=== PATIENT | male | born 1935 | race Caucasian/White ===

== ENCOUNTER 2024-04-13 20:58 | Inpatient (IN) | payer OTHER, SELFPAY ==
[2024-04-13 16:25] VITALS: BP 211/125
[2024-04-13 16:36] LABS: % Basophils 0.5 % (0-2); % Eosinophils 0.2 % (0-6); % Immature Granulocytes 0.5 % (0-0.5); % Lymphocytes 7.6 % (20.5-51.1); % Monocytes 6.9 % (1.7-9.3); % Neutrophils 84.3 % (42.2-75.2); Absolute Basophils 0.1 10^3/uL (0-0.2); Absolute Immature Granulocytes 0.1 10^3/uL (0-0.05); Absolute Lymphocytes 0.8 10^3/uL (1.2-3.4); Absolute Monocytes 0.7 10^3/uL (0.1-0.6); Absolute Neutrophils 8.9 10^3/uL (1.4-6.5); Hematocrit 34.1 % (39.0-52.0); Hemoglobin 12.4 g/dL (13.0-18.0); Mean Corp Hgb Conc. 36.4 g/dL (33.0-37.0); Mean Corpuscular Hgb 34.8 pg (27.0-31.0); Mean Corpuscular Volume 95.8 fL (80.0-94.0); Mean Platelet Volume 10.9 fL (7.4-10.4); Nucleated Red Blood Cells % 0 % (-); Platelet Count 310 10^3/uL (130-400); Red Blood Cell Count 3.56 10^6/uL (4.70-6.10); Red Cell Dist. Width 12.5 % (11.5-14.5); White Blood Cell Count 10.6 10^3/uL (4.8-10.8)
[2024-04-13 16:53] LABS: ALT (SGPT) 21 U/L (0-50); AST (SGOT) 35 U/L (17-59); Albumin 4.7 g/dl (3.5-5.0); Alkaline Phosphatase 66 U/L (38-126); Blood Urea Nitrogen 24 mg/dl (9-20); Calcium 9.9 mg/dl (8.4-10.2); Carbon Dioxide 25 mmol/L (22-30); Chloride 97 mmol/L (98-107); Glucose 142 mg/dl (70-99); Lipase 45 U/L (23-300); Sodium 133 mmol/L (135-145); Total Bilirubin 0.5 mg/dl (0.2-1.3); Total Protein 7.5 g/dl (6.3-8.2); eGFR > 60.00
[2024-04-13 17:17] VITALS: BMI 22.5
[2024-04-13 17:17] LABS: Troponin I < 0.012 ng/ml
--- NOTE | 2024-04-13 17:20 | ED.GENMED ---
History of Present Illness
General
Chief Complaint: Abdominal Pain
Source: patient and records (Note from PCP office)
Exam Limitations: none
Time Seen by Provider: 04/13/24 16:58
Nursing documentation reviewed up to this point in time: agreed with
History of Present Illness
History of Present Illness:
89-year-old male with a past medical history of hyperlipidemia, chronic neck pain, BPH, history of gastric ulcer and perforation requiring ex lap (2019) who presents to the emergency room referred by PCP for evaluation of abdominal pain. Patient
reports onset of symptoms roughly 10 days ago. He says that 2 weeks ago he was initiated on meloxicam for his chronic neck pain (his medication list indicates that he also takes ibuprofen and is on chronic oxycodone for his neck pain). He says that
shortly after starting this medication he noticed he was having abdominal discomfort. He says that this has been persistent since that time and generally worsening. He reports pain periumbilical region and radiates towards the epigastrium. No
clear relieving factors noted. He reports associated lack of appetite. He did have 1 episode of vomiting shortly after onset of symptoms has not had any vomiting since. He says he has had some mild constipation�he says has had a bowel movement
every 2 to 3 days which is less than usual. He has not noticed any blood in his stool although note from PCP reports that rectal exam today was Hemoccult positive. He denies any chest pain although apparently reported this at PCP office according
to their note�when asked about it he says that the pain is in his epigastrium. Denies shortness of breath, dizziness, lightheadedness. Denies back pain. He denies any other complaints. Prior surgical history includes ex lap for perforated
duodenal ulcer.
Past History
Past History
ED Past Medical History: HTN and Hypercholesterolemia
ED Past Surgical History: None
Social History
Tobacco: Non-smoker
Alcohol: None
Review of Systems
Review of Systems
All Other Systems: ROS reviewed and negative except as documented in HPI and ROS
Constitutional: Denies fever or chills
Respiratory: Denies cough or trouble breathing
Cardiac: Denies chest pain or palpitations
ABD/GI: Reports abdominal pain, nausea, vomiting and constipated; Denies diarrhea
: Denies dysuria, frequency or flank pain
Musculoskeletal: Denies neck pain or back pain
Neurological: Denies dizzy or headache
Phy Exam
Physical Exam
Physical Exam:
General: Awake, alert, oriented x3; no acute distress
Head: Normocephalic, atraumatic
Eyes: Conjunctiva normal, sclera anicteric
Throat: Airway intact, handling secretions
Neck: Trachea midline, supple without meningismus
Lungs: Clear to auscultation bilaterally, no wheezing, rales, rhonchi
Heart: Regular rate and rhythm, no murmurs, gallops, or rubs
Abd: Soft, non distended, tender to palpation periumbilical region and epigastrium, no palpable masses, no peritoneal signs
Neuro: No gross deficits
Skin: no rash
Extremities: No edema in extremities, equal pulses in all extremities
Scores
Heart Failure Risk
Heart Failure Risk Score: Not Applicable
Heart Score for Chest Pain Patients
STEMI patient?: Not applicable
Withdrawal Assessment of Alcohol
Withdrawal Assessment Completed?: Not applicable
Course
Orders/Labs/Results
Orders:
Orders
04/13/24 16:30
Complete Blood Count/With Diff Urgent
Comprehensive Metabolic Panel Urgent
Lipase Urgent
Troponin I Urgent
04/13/24 16:59
Electrocardiogram (*1) Urgent
Reason for Study: Abdominal Pain
EKG- Treatment ONCE
04/13/24 17:18
CT Abd/pelvis W Iv Cont Urgent
Comment:
Reason For Exam: upper abd pain and ttp; h/o perf ulcer
04/13/24 18:01
Pantoprazole [Protonix IV] 40 mg IV NOW STA
04/13/24 18:23
HydrALAZINE [Apresoline] 5 mg IV NOW STA
Abnormal Lab Results
04/13/24
16:30
RBC 3.56 L 10^6/uL
(4.70-6.10)
Hgb 12.4 L g/dL
(13.0-18.0)
Hct 34.1 L %
(39.0-52.0)
MCV 95.8 H fL
(80.0-94.0)
MCH 34.8 H pg
(27.0-31.0)
MPV 10.9 H fL
(7.4-10.4)
Abs Immat Gran (auto) 0.1 H 10^3/uL
(0-0.05)
Absolute Neuts (auto) 8.9 H 10^3/uL
(1.4-6.5)
Absolute Lymphs (auto) 0.8 L 10^3/uL
(1.2-3.4)
Absolute Monos (auto) 0.7 H 10^3/uL
(0.1-0.6)
Neutrophils % 84.3 H %
(42.2-75.2)
Lymphocytes % 7.6 L %
(20.5-51.1)
Sodium 133 L mmol/L
(135-145)
Chloride 97 L mmol/L
(98-107)
BUN 24 H mg/dl
(9-20)
Creatinine 0.6 L mg/dL
(0.7-1.3)
Glucose 142 H mg/dl
(70-99)
04/13/24 16:30
04/13/24 16:30
Vital Signs
Initial and Last Documented VS:
Initial Vital Signs
Temp Pulse Resp BP Pulse Ox
36.9 C 112 18 211/125 99
04/13/24 16:25 04/13/24 16:25 04/13/24 16:25 04/13/24 16:25 04/13/24 16:25
Last Documented Vital Signs
Temp Pulse Resp BP Pulse Ox
36.9 C 82 20 170/92 96
04/13/24 16:25 04/13/24 17:45 04/13/24 17:45 04/13/24 17:27 04/13/24 17:45
MDM/Problems Addressed
Differential Diagnosis Includes:
Gastritis, PUD, pancreatitis, cholecystitis/cholelithiasis
MDM/Problems Addressed:
89-year-old male presents for evaluation of upper abdominal discomfort for about 10 days in the setting of recent initiation of meloxicam for chronic neck pain; he did have 1 episode of vomiting after initial onset, none since. Has been
constipated, denies black or bloody stools but apparently had positive Hemoccult in the office today. Hypertensive and tachycardic in triage; physical exam as above. Plan to place an IV check labs including a CBC and a CMP, lipase. Check EKG and
troponin. Check CT abdomen pelvis. Provide IV Protonix and start infusion given positive Hemoccult. Treat with hydralazine for hypertension. Reassess after the above.
Initial labs reviewed: CBC shows hemoglobin 12.4 which is stable, no leukocytosis. CMP acceptable renal function, no clinically significant abnormalities. Troponin undetectable x 1. Lipase normal. LFTs notably normal. Blood pressure improved
but still elevated, continue to monitor. Heart rate has improved without invention; hemoglobin is stable but I think patient warrants admission for observation and trending of hemoglobin with positive Hemoccult; will continue PPI infusion and treat
for presumed peptic ulcer. CT pending to rule out perforation although low clinical suspicion. Will also need monitoring and treatment of uncontrolled hypertension. Case discussed with hospitalist for admission.
Chronic conditions affecting care:
PUD
Acute Exacerbation and/or Progression of Chronic Illness:
Acutely hypertensive�improved without invention continue to monitor but no additional antihypertensives for now
Acute Exacerbation and/or Progression of Chronic Illness: HTN
*Radiology
Radiology exam reviewed: radiology read reviewed
*Pulse Oximetry
Patient hypoxic: no
*EKG
Interpreted by ED Provider?: Yes
Heart Rate: 90
Rate: normal
Rhythm: sinus
Corwith: left axis deviation
Interval: normal interval
QRS Pattern: normal QRS
Ischemia: no ischemia
*Critical Care Note
Total Time (30-74mins, 75-104mins- exclusive of procedures): Not Applicable
Data Reviewed
Review of Other/Old Records Reveals: Labs and Records
Source: patient and records
Patient Management
Discussion with other providers: Hospitalist (Discussed with hospitalist)
Escalation/DeEscalation of care consider admission/obs:
Admission indicated
ED Attending Note
-
Portions of this chart may have been created with voice recognition software.� Occasional wrong word or��sound alike� substitutions may have occurred due to the inherent limitations of voice recognition software.
Discharge Plan
Departure
Patient Disposition: Admit
Date of Disposition: 04/13/24
Time of Disposition: 18:43
Presentation/result/management discussed w/ accepting MD/DO: Hospitalist
Discharge Problem:
Gastritis, Acute upper GI bleed, Hypertension
Prescriptions:
No Action
terazosin 5 MG capsule
5 mg PO DAILY
garlic 1,000 MG capsule
1,000 mg PO DAILY
simvastatin 20 MG tablet
20 mg PO QPM
fluticasone propionate 1 SPRAY spray,suspension
1 spray intranasal DAILY
finasteride 5 MG tablet
5 mg PO DAILY
loratadine 10 MG tablet
10 mg PO DAILY
hkwyphumclqux-OZ-vxbgcacoyxf [Mucinex Fast-Max Congest-Cough] 180 ML liquid
2 tsp PO BID
simethicone [Gas-X Extra Strength] 125 MG tablet,chewable
125 mg PO DAILYPRN PRN (Reason: gas)
Patient Comments:
pt states he hasn't used in years
lorazepam 1 MG tablet
1 mg PO DAILYPRN PRN (Reason: anxiety/sleep)
Patient Comments:
08/31/19--per PDMP pt recieved Lorazepam 1mg on 08/27/19 30 for 30 days [facility] pt states he hasn't used in 18 months
polyvinyl alcohol-povidon(PF) [Refresh Classic (PF)] 10 DROPS dropperette
1 drp BOTH EYES BID
glucosamine sulfate 2KCl 1,000 MG tablet
1,000 mg PO BID
multivitamin with folic acid [Tab-A-Mayra] 1 TABLET tablet
1 tab PO DAILY
oxycodone-acetaminophen 5 MG/325 MG tablet
0.5 tab PO QID
Ketoconazole Shampoo 2%
PRN PRN (Reason: scalp condition)
Vitamin B6
50 mg PO DAILY
Vitamin D3
100 mg PO DAILY
Interventions
Interventions:
*Risk Screen - Suicide Last Done: 04/13/24 17:30
*General Assessment Last Done: 04/13/24 17:30
*Neglect/Abuse Screening Last Done: 04/13/24 17:30
ED- Fall Risk Assessment Last Done: 04/13/24 17:14
*ED COVID-19 Vaccine History Last Done: 04/13/24 17:30
[facility] Assessment Last Done: 04/13/24 17:14
Discharge Date and Time
Print Language: LITHUANIAN
[2024-04-13 17:27] VITALS: BP 170/92
[2024-04-13 18:00] VITALS: BP 177/94
[2024-04-13] MEDS: PROTONIX IV 40 MG IV (18:23)
[2024-04-13] MEDS: APRESOLINE 5 MG IV (18:27)
[2024-04-13 19:00] VITALS: BP 175/87
--- NOTE | 2024-04-13 19:24 | HPS.HSE ---
Addendum entered and electronically signed by Juventino Geiger MD 04/13/24 20:13:
Addendum to A/P:
4. Mild hyponatremia, NA 133, likely low volume
Saline overnight
recheck in am
5. BUN/Creat > 20, likely poor po intake
Saline overnight
Recheck in am
Original Note:
Family Physician
-
Family Physician: JIMENEZ BENNETT PA-C
Chief Complaint
-
Black stools
History of Present Illness
89-year-old man with a past medical history of
hyperlipidemia,
chronic neck pain,
BPH,
history of gastric ulcer and perforation requiring ex lap (2019)
who was referred by PCP for evaluation of abdominal pain. Patient reports start of symptoms 10 days ago. 2 weeks ago he was initiated on meloxicam for chronic neck pain, adding to ibuprofen and oxycodone. Shortly after starting this medication, he
noticed abdominal discomfort. Pain has been persistent since that time and worsening. Pain is in the periumbilical region and radiates towards the epigastrium. No clear relieving factors, and associated lack of appetite. +1 episode of vomiting,
mild constipation�(he says has had a bowel movement every 2 to 3 days which is less than usual). No blood in his stool, PCP reports that rectal exam today was Hemoccult positive. Denies shortness of breath, dizziness, lightheadedness. Denies back
pain. He denies any other complaints. Prior surgical history includes ex lap for perforated duodenal ulcer. BP in ED was very elevated.
Medical History
Past Medical History
Past Medical History: Reports Other
Additional Past Medical History:
Essential HTN
Hypercholesterolemia
Enlarged prostate
Vertigo
Tinitis
Rt. Inguinal hernia
Arthritis
Anxiety
Plantar faciitis
right knee reconstruction
right arthoscopic knee surgery
cardiac cath
Colonoscopy
08/31/2019 Exploratory laparotomy with Luis Eduardo path closure of a perforated doudenal ulcer (Dr. Read)
Right scrotal hernia repair with mesh (gabriele) 04/06/2021
Past Surgical History: Reports Other
Additional Past Surgical History:
see above
Social History
Tobacco: Non-smoker
Alcohol: Occasional
Drug: None
Family History
Family History: Not pertinent
Allergies / Home Medications
Allergies reflects when Allergies were last updated in [facility].
Home Medications with original date entered in [facility]
Allergy/Medication List:
Allergies
Allergy/AdvReac Type Severity Reaction Status Date / Time
decongestants Allergy avoids due Uncoded 04/06/21 09:34
to
enlarged
prostate
enviromental Allergy runny Uncoded 04/06/21 09:34
nose,itchy
eyes
Home Medications
finasteride 5 mg tablet 5 mg PO DAILY 08/31/19
fluticasone propionate 50 mcg/actuation nasal spray,suspension 2 spray intranasal DAILY 08/31/19
garlic 1,000 mg capsule 1,000 mg PO DAILY 08/31/19
glucosamine sulfate 2KCl 1,000 mg tablet 1,000 mg PO BID 08/31/19
loratadine 10 mg tablet 10 mg PO DAILY 08/31/19
multivitamin with folic acid 400 mcg tablet (Tab-A-Mayra) 1 tab PO DAILY 08/31/19
cholecalciferol (vitamin D3) 50 mcg (2,000 unit) tablet (Vitamin D3) 100 mcg PO DAILY ##0 04/03/21
ketoconazole 2 % shampoo 1 applic topical WEEKLY ##0 04/03/21
pyridoxine (vitamin B6) 50 mg tablet (Vitamin B-6) 50 mg PO DAILY ##0 04/03/21
guaifenesin 100 mg/5 mL oral liquid 200 mg PO BID 04/13/24
ibuprofen 200 mg capsule 200 mg PO Q6HPRN PRN mild pain/fever 04/13/24
melatonin 3 mg tablet 6 mg PO BID 04/13/24
meloxicam 7.5 mg tablet 7.5 mg PO BID 04/13/24
metoprolol succinate 25 mg tablet,extended release 24 hr 25 mg PO HS 04/13/24
oxycodone-acetaminophen 7.5 mg-325 mg tablet 0.5 tab PO 6XD 04/13/24
simvastatin 40 mg tablet 20 mg PO QPM 04/13/24
tamsulosin 0.4 mg capsule 0.4 mg PO DAILY 04/13/24
Review of Systems
-
History Source: Patient
A 12 point ROS was completed and negative except as noted: Yes
Physical Exam
Vital Signs
Vital Signs
Temp Pulse Resp BP Pulse Ox
98.4 F 93 17 175/87 99
04/13/24 16:25 04/13/24 19:00 04/13/24 19:00 04/13/24 19:00 04/13/24 19:00
Physical Exam
General: Well Developed, Well Nourished, No Apparent Distress, Comfortable and Conversant
HEENT: NormoCephalic, Moist mucous membranes, Atraumatic, Nose Appears Normal and Ears Appear Normal
Respiratory: Clear
Cardiac: S1/S2 and Regular Rhythm
GI: Soft, Non Tender and Non Distended
Musculoskeletal: No Clubbing, No Cyanosis and No Edema
Skin: Warm and Dry; No Rash or Jaundice
Neuro: Awake, Alert and Oriented
Psych: Calm
Laboratory Results
-
04/13/24 16:30
04/13/24 16:30
Laboratory Results
Total Bilirubin 0.5 mg/dl (0.2-1.3) 04/13/24 16:30
AST 35 U/L (17-59) 04/13/24 16:30
ALT 21 U/L (0-50) 04/13/24 16:30
Alkaline Phosphatase 66 U/L (38-126) 04/13/24 16:30
Troponin I < 0.012 ng/ml 04/13/24 16:30
Lipase 45 U/L (23-300) 04/13/24 16:30
Data Reviewed
-
Lab Data: Labs Reviewed by me
Impression/Plan
-
IMPRESSION:
89 man with guaiac positive stool, epigastric pain, after taking meloxicam and ibuprofen with a history of duodenal ulcer.
PLAN:
1. Probable UGIB. BP not low, pulse OK., H/H 12.4/34.1 (near baseline)
GI consult
NPO
IV protonix
Does not need blood at this time
2. Elevated BP - better with hydralazine
Continue hydralazine (oral meds being held)
SANDY (supply demand missmatch)
3. Chronic pain - on oral opioids
Switch to IV while NPO
Full code
VCD for DVTp
[2024-04-13] MEDS: PROTONIX 100 IV (21:23)
[2024-04-13] MEDS: NSS 1000 IV (22:22)
[2024-04-13 22:46] LABS: Hematocrit 33.2 % (39.0-52.0); Hemoglobin 12.4 g/dL (13.0-18.0)
[2024-04-13 23:17] LABS: Troponin I < 0.012 ng/ml
[2024-04-13 23:33] VITALS: BP 179/111; BMI 21.9
[2024-04-13 23:43] VITALS: BP 160/96
[2024-04-14] VITALS (9 sets, daily range): BP systolic 18–183; BP diastolic 77–107; PULSE 85–110
--- NOTE | 2024-04-14 04:24 | PTCARENOTE ---
Patient received from ED with Protonix infusion as ordered. He was oriented to room and surroundings. See nursing assessment for physical findings. IVF as ordered. Labs by ANESTHESIOLOGIST PHYSICIAN.
[2024-04-14 05:41] LABS: Troponin I < 0.012 ng/ml
[2024-04-14 06:16] LABS: Blood Urea Nitrogen 17 mg/dl (9-20); Calcium 9.2 mg/dl (8.4-10.2); Carbon Dioxide 22 mmol/L (22-30); Chloride 102 mmol/L (98-107); Estimated Creatinine Clearance 73 ml/min; Glucose 94 mg/dl (70-99); Potassium 4.1 mmol/L (3.5-5.1); Sodium 136 mmol/L (135-145); eGFR > 60.00
[2024-04-14] MEDS: PROTONIX IV (06:20)
[2024-04-14] MEDS: PROTONIX 100 IV (06:30)
--- NOTE | 2024-04-14 06:58 | CON.GI ---
Addendum entered and electronically signed by Naveen Solano DO 04/14/24 10:15:
I saw and examined the patient.
The BED MAKER's note was reviewed and I agree with the note.
Comment: This is an 89 y.o male with pmh of HTN, HLD, hernia repair, chronic neck pain (on NSAIDs), and prior PUD (s/p ex-lap w/ Luis Eduardo patch of perforated duodenal ulcer in 2019) who presented to the ED with epigastric abdominal pain. Reports
taking frequent Ibuprofen about a month ago and then started Meloxicam over the past few weeks for his chronic neck pain. Denies any melena or bloody stools. No nausea or vomiting, but does note mild dyspepsia. Denies any unintentional weight loss.
No other antiplatelets or anticoagulants or significant alcohol use. No prior EGD in the past, last colonoscopy > 10 yrs ago with polyps (at OSH - unable to view report / path results). In ED patient was HDS and Hgb 12.4 without any melena or bloody
stools. CT Abd/pelvis revealed prominent duodenal wall thickening consistent with duodenitis without any focal collection or extraluminal gas. Additionally, noted to have multiple, non-obstructing hernias without any signs to suggest incarceration.
Scattered mild diverticulosis without any findings to suggest diverticulitis. Etiology of epigastric pain appears most consistent with NSAID-induced duodenitis versus PUD. No signs of overt GI bleeding, but given CT findings and without prior
endoscopic evaluation in the past (with his prior perforated duodenal ulcer) reasonable to perform EGD today for further evaluation with plans to rule out underlying H pylori for completion.
Plan:
- Keep NPO
- May stop IV PPI gtt as without concern for brisk bleeding and stable H/h
- Start IV PPI 40 mg BiD
- Trend Hgb with serial CBC
- Plan for EGD today, 04/14/2024
- Needs strict avoidance of all NSAIDs
- Rest of recommendations as outlined below
Original Note:
Consultation
-
Date/Time Consultation Requested: 04/13/242129
Date/Time Consultation Performed: 04/14/24 0800
Requesting Provider: Juventino Geiger MD
Performing Provider: MOSES Calix, Naveen Solano MD
Reason for Consultation: eval for duodenal ulcer
Medical History
Chief Complaint / HPI
Chief Complaint: abdominal pain
History of Present Illness:
Pt is a 89yo with HTN, hypercholesterolemia,BPH, anxiety, vertigo, hernia repair, chronic neck pain for 10 + years and ulcer disease with prior exp lap with Luis Eduardo patch with closure of perforated duodenal ulcer with onset of abdominal pain. In
reviewing with patient he is followed by pain management for chronic neck pain. He is on Oxycodone and admits to taking Ibuprofen. About 1 month ago he stopped Ibuprofen and added Meloxicam. He now presents with abdominal pain. On admission
noted with hbg 12.[address] noted duodenitis no perforation or abscess and noted supra umbilical hernia paramidline component antimesenteric margin of transverse colon. no obstruction or incarceration. Supra left paramidline component defect
containing fat and left inguinal hernia containing fat, and a segment of the proximal sigmoid colon without proximal obstruction, wall thickening, or soft tissue stranding. Diverticulosis without diverticulosis.
Pt otherwise admits to some GERD with abdominal pain. Abdominal pain is mid abdomen now with some improvement. He is unable to state what makes pain better or worse. He denies dysphagia, odynophagia, hematemesis, diarrhea, constipation, or
rectal bleeding. Denies hx EGD in past. colonoscopy 10 + years ago with polyps. No completed at .
.
Past Medical History
Past Medical History: HTN, Hypercholesterolemia, Psychiatric (anxiety) and Other (chronic neck pain, enlarged prostate, vertigo, tinitis, inguinal hernia, arthritis, palantar fasititis, colon polyps )
Past Surgical History: Cardiac (prior cath ), Orthopedic (right knee reconstructions, right knee arthroscopic surgery) and Other (exp lap 2019 with luis eduardo patch with closure of perforated ulcer, scrotal hernia repair with mesh 2020 )
Social History
Tobacco: Non-Smoker
Alcohol: Daily (1 wine and 2 gin and tonics )
Drug: None
Personal:
Living: With Family
Employment: Retired
Family History
Family History: Other (no family hx GI cancer or problems)
Allergies / Home Medications
Allergy/AdvReac Type Severity Reaction Status Date / Time
house dust Allergy runny Verified 04/13/24 21:40
nose,itchy
eyes
mold Allergy runny Verified 04/13/24 21:40
nose,itchy
eyes
pollen extracts Allergy runny Verified 04/13/24 21:40
nose,itchy
eyes
decongestants Allergy avoids due Uncoded 04/06/21 09:34
to
enlarged
prostate
�Medication �Instructions �Recorded
finasteride 5 mg tablet 5 mg PO DAILY 08/31/19
fluticasone propionate 50 2 spray intranasal DAILY 08/31/19
mcg/actuation nasal
spray,suspension
garlic 1,000 mg capsule 1,000 mg PO DAILY 08/31/19
glucosamine sulfate 2KCl 1,000 mg 1,000 mg PO BID 08/31/19
tablet
loratadine 10 mg tablet 10 mg PO DAILY 08/31/19
multivitamin with folic acid 400 1 tab PO DAILY 08/31/19
mcg tablet (Tab-A-Mayra)
cholecalciferol (vitamin D3) 50 100 mcg PO DAILY ##0 04/03/21
mcg (2,000 unit) tablet (Vitamin
D3)
ketoconazole 2 % shampoo 1 applic topical WEEKLY ##0 04/03/21
pyridoxine (vitamin B6) 50 mg 50 mg PO DAILY ##0 04/03/21
tablet (Vitamin B-6)
guaifenesin 100 mg/5 mL oral liquid 200 mg PO BID 04/13/24
ibuprofen 200 mg capsule 200 mg PO Q6HPRN PRN mild 04/13/24
pain/fever
melatonin 3 mg tablet 6 mg PO BID 04/13/24
meloxicam 7.5 mg tablet 7.5 mg PO BID 04/13/24
metoprolol succinate 25 mg 25 mg PO HS 04/13/24
tablet,extended release 24 hr
oxycodone-acetaminophen 7.5 mg-325 0.5 tab PO 6XD 04/13/24
mg tablet
simvastatin 40 mg tablet 20 mg PO QPM 04/13/24
tamsulosin 0.4 mg capsule 0.4 mg PO DAILY 04/13/24
Review of Systems
-
History Source: Patient
Constitutional: Reports No Symptoms
EENT: Reports No Symptoms
Respiratory: Reports No Symptoms
Cardiac: Reports No Symptoms
Abdomen/GI: Reports Abdominal Pain
: Reports Frequency
Musculoskeletal: Reports Joint Pain (chronic neck pain )
Skin: Reports No Symptoms
Neurological: Reports Weakness
Endocrine: Reports No Symptoms
Hematologic/Lymphatic: Reports No Symptoms
Vital Signs
Temp Pulse Resp BP Pulse Ox
98.5 F 86 18 164/87 98
04/14/24 03:50 04/14/24 03:50 04/14/24 03:50 04/14/24 03:50 04/14/24 03:50
Physical Exam
Exam
General: Well Developed, Well Nourished and No Apparent Distress
HEENT: Normocephalic and Anicteric
Respiratory: Clear
Cardiac: Regular Rhythm
GI: Soft, Non Tender and Non Distended
Musculoskeletal: No Clubbing and No Cyanosis
Skin: Warm and Dry
Neuro: Awake, Alert and AO x 3
Psych: Calm
Results
WBC 10.6 10^3/uL (4.8-10.8) 04/13/24 16:30
Hgb 12.4 g/dL (13.0-18.0) L 04/13/24 22:40
Hct 33.2 % (39.0-52.0) L 04/13/24 22:40
MCV 95.8 fL (80.0-94.0) H 04/13/24 16:30
Plt Count 310 10^3/uL (130-400) 04/13/24 16:30
Absolute Neuts (auto) 8.9 10^3/uL (1.4-6.5) H 04/13/24 16:30
Sodium 136 mmol/L (135-145) 04/14/24 05:06
Potassium 4.1 mmol/L (3.5-5.1) 04/14/24 05:06
Chloride 102 mmol/L (98-107) 04/14/24 05:06
Carbon Dioxide 22 mmol/L (22-30) 04/14/24 05:06
BUN 17 mg/dl (9-20) 04/14/24 05:06
Creatinine 0.6 mg/dL (0.7-1.3) L 04/14/24 05:06
Calcium 9.2 mg/dl (8.4-10.2) 04/14/24 05:06
Total Bilirubin 0.5 mg/dl (0.2-1.3) 04/13/24 16:30
AST 35 U/L (17-59) 04/13/24 16:30
ALT 21 U/L (0-50) 04/13/24 16:30
Alkaline Phosphatase 66 U/L (38-126) 04/13/24 16:30
Lipase 45 U/L (23-300) 04/13/24 16:30
Diagnostic Image Results:
04/13/24 CT A/P with IV contrast
Duodenitis. No evidence to suggest perforation or abscess.
Supra umbilical hernia right paramidline component containing the antimesenteric margin of the transverse colon. No proximal dilatation to suggest obstruction. No significant soft tissue stranding or wall thickening to suggest incarceration.
Supraumbilical left paramidline component with the defect containing fat.
Mild diverticulosis. No evidence of acute diverticulitis. No bowel obstruction.
Left inguinal hernia containing fat, and a segment of the proximal sigmoid colon without proximal obstruction, wall thickening, or soft tissue stranding.
Prior GI Procedures:
EGD: none
Colonoscopy: 10 years ago pt recall polyps
Assessment / Plan
-
Pt is a 89yo with HTN, hypercholesterolemia,BPH, anxiety, vertigo, hernia repair, chronic neck pain for 10 + years and ulcer disease with prior exp lap with Luis Eduardo patch with closure of perforated duodenal ulcer with onset of abdominal pain. In
reviewing with patient he is followed by pain management for chronic neck pain. He is on Oxycodone and admits to taking Ibuprofen. About 1 month ago he stopped Ibuprofen and added Meloxicam. He now presents with abdominal pain. On admission
noted with hbg 12.[address] noted duodenitis no perforation or abscess and noted supra umbilical hernia paramidline component antimesenteric margin of transverse colon. no obstruction or incarceration. Supra left paramidline component defect
containing fat and left inguinal hernia containing fat, and a segment of the proximal sigmoid colon without proximal obstruction, wall thickening, or soft tissue stranding. Diverticulosis without diverticulosis.
-abdominal pain
-CT with duodenitis
-hx gastric ulcer with exp lap with luis eduardo patch with closure with perforated duodenal ulcer
-chronic neck pain with NSAID/narcotic use-- recent start of Meloxicam
-umbilical/inguinal hernia noted on CT
other med problems:
-HTN
-hypercholesterolemia
-BPH
-anxiety
-vertigo
-hernia repair
PLAN:
Etiology of abdominal pain and duodenitis related to ulcer disease vs other -- less likely hernia related as non obstructing on CT
hbg stable cont to trend
cont PPI gtt
NPO
will plan for EGD -reviewed risk and benefits for procedure
updated pt on plan -- offered to call family pt decline
Pt counseled on NSAID avoidance
-
-
-
Thank you for consultation and allowing me to participate in the patient's care. Please call the reconcilement clerk GI physician during the after hours with any questions or concerns.
[2024-04-14 08:00] LABS: Hematocrit 30.8 % (39.0-52.0); Hemoglobin 11.3 g/dL (13.0-18.0); Mean Corp Hgb Conc. 36.7 g/dL (33.0-37.0); Mean Corpuscular Hgb 35.1 pg (27.0-31.0); Mean Corpuscular Volume 95.7 fL (80.0-94.0); Mean Platelet Volume 11.7 fL (7.4-10.4); Platelet Count 288 10^3/uL (130-400); Red Blood Cell Count 3.22 10^6/uL (4.70-6.10); Red Cell Dist. Width 12.7 % (11.5-14.5); White Blood Cell Count 9.7 10^3/uL (4.8-10.8)
--- NOTE | 2024-04-14 09:56 | W.PN.HOSP.TC ---
Today's Communication/Plan
-
f/w GI recommendations
Assessment / Plan
Assessment / Plan
Physical Exam
General: Well Developed, Well Nourished, No Apparent Distress, Comfortable and Conversant
HEENT: Normocephalic, Moist mucous membranes, Atraumatic, Nose Appears Normal and Ears Appear Normal
Respiratory: Clear
Cardiac: S1/S2 and Regular Rhythm
GI: Soft, Non Tender and Non Distended
Musculoskeletal: No Clubbing, No Cyanosis and No Edema
Skin: Warm and Dry; No Rash or Jaundice
Neuro: Awake, Alert and Oriented
Psych: Calm.
89 man with guaiac positive stool, epigastric pain, after taking meloxicam and ibuprofen with a history of duodenal ulcer.
# Acute epigastric abdominal pain.
History of taking frequent Ibuprofen then started Meloxicam over the past few weeks for his chronic neck pain.
No rectal bleeding.
HGB around [address] showed duodenitis, mild diverticulosis
He is feeling better this morning
No nausea
ok to change Protonic gtt to BID
Appreciate GI help, for EGD
# Primary HTN
Uncontrolled
No chest pain, no headache
Start IV Vaso tech while NPO
Restart BB
Add PRN Hydralazine
# Chronic pain - on oral opioids
#Mild hyponatremia
Total time spent to see the patient, examine the patient on the floor, review data and lab results, discuss the treatment plan with the patient, nursing staff around 55 minutes
Anticipated Discharge: Within 24 hours
Subjective/Interval History
-
Date of Service: April 14, 2024
He feels better
Objective Data
-
Labs:
Laboratory Results
04/13/24 04/14/24 04/14/24
22:40 05:00 05:06
WBC 9.7
Hgb 12.4 L 11.3 L
Hct 33.2 L 30.8 L
Plt Count 288
Sodium 136
Potassium 4.1
Chloride 102
Carbon Dioxide 22
BUN 17
Creatinine 0.6 L
Glucose 94
Calcium 9.2
Vital Signs:
Vital Signs
Temp Pulse Resp BP Pulse Ox
97.8 F 88 17 142/88 97
04/14/24 07:22 04/14/24 07:22 04/14/24 07:22 04/14/24 07:22 04/14/24 07:22
I&O
04/13/24 04/14/24 04/15/24
06:59 06:59 06:59
Intake Total 670 / 670
Output Total 550 / 550
Balance 120 / 120
--- NOTE | 2024-04-14 11:30 | WOUNDNOTE ---
[facility] RN note: Patient admitted with UGIB. Patient lives at [facility] (independent living?).
See H&P for complete history.
PMH: BPH, gastric ulcer/perforation, s/p exploratory lap 2019, chronic pain on opioids, HTN, vertigo, tinnitus, R inguinal hernia repair with mesh 2020, arthritis, anxiety, plantar fasciitis, R knee reconstruction, R arthroscopic knee surgery,
cardiac cath.
Wound Location and type/assessment: Patient admitted with: multiple dermal sacral/buttocks pressure injuries. Patient stated he spends a lot of time reclining on his sofa during the day. He can ambulate and move self in bed.
Appetite: currently NPO.
Pressure redistribution devices in place: Advanta with Accumax. He turns self in bed. He mentioned he lies on his stomach at bedtime at home.
Plan: Silicone border foam changed on sacral/buttocks. Air chair cushion placed under sacral/buttocks. Heels off bed with pillow. Instructed patient pressure injury prevention measures.
Will confirm orders with hospitalist and discussed with MINNA Alba.
Care plan to be updated and will follow as needed.
Note to case management requested for discharge: VN if patient qualifies and agrees.
Recommend follow up at wound care center upon discharge.
[2024-04-14 12:02] LABS: Troponin I < 0.012 ng/ml
[2024-04-14] MEDS: VASOTEC 0.625 MG IV (12:22)
--- NOTE | 2024-04-14 14:13 | CM ---
Reviewed chart, met with patient at bedside to obtain information for assessment. Patient stated that he lives with his in an apartment at [facility]. He described himself as independent with his ADLs, personal care, dressing and bathing. He
has two walkers and a cane that he uses to assist with his ambulation. Patient confirmed that he can do uniform maker, cook, clean and do laundry. He gets meals from the community and also takes transportation when available from [facility].
Patient denied any other DME.
He has never had VN services.
He has not been to a SNF in the past.
Patient has a prescription plan and uses, [facility] in [place] for all of his medications.
Patient's PCP is, Ronak Martinez.
Patient stated that he feels that he will be able to return to his apartment at discharge. He is agreeable to VN if indicated.
Plan: Case management will continue to follow and assist with discharge planning. Patient would like to return to his apartment if he is functioning close to baseline.
[2024-04-14] MEDS: NSS IV (18:45)
[2024-04-14] MEDS: PROTONIX IV 40 MG IV (20:21)
[2024-04-14] MEDS: PROSCAR 5 MG PO (20:21)
[2024-04-14] MEDS: FLUSH (NSS) 2 FLUSH IV (20:22)
[2024-04-14] MEDS: NSS (PRESERVATIVE FREE) 10 ML IV (20:22)
[2024-04-14] MEDS: TOPROL XL 25 MG PO (20:22)
[2024-04-15] VITALS (8 sets, daily range): BP systolic 143–171; BP diastolic 75–97; PULSE 89–99; O2SAT 98
[2024-04-15 07:17] LABS: Hematocrit 32.1 % (39.0-52.0); Hemoglobin 11.7 g/dL (13.0-18.0); Mean Corp Hgb Conc. 36.4 g/dL (33.0-37.0); Mean Corpuscular Hgb 35.5 pg (27.0-31.0); Mean Corpuscular Volume 97.3 fL (80.0-94.0); Platelet Count 277 10^3/uL (130-400); Red Cell Dist. Width 12.5 % (11.5-14.5); White Blood Cell Count 25.4 10^3/uL (4.8-10.8)
[2024-04-15 07:32] LABS: Blood Urea Nitrogen 16 mg/dl (9-20); Carbon Dioxide 21 mmol/L (22-30); Chloride 100 mmol/L (98-107); Estimated Creatinine Clearance 55 ml/min; Glucose 97 mg/dl (70-99); Potassium 3.9 mmol/L (3.5-5.1); Sodium 138 mmol/L (135-145); eGFR > 60.00
--- NOTE | 2024-04-15 08:04 | PTCARENOTE ---
patient with temp 99.3 and chills, since then has been afebrile with no chills, WBC 25.[address] Altman notified and came to see patient, will continue to monitor.
[2024-04-15] MEDS: PROSCAR 5 MG PO (08:46)
[2024-04-15] MEDS: NSS (PRESERVATIVE FREE) 10 ML IV ×2 (08:47→19:53)
[2024-04-15] MEDS: PROTONIX IV 40 MG IV ×2 (08:47→19:53)
--- NOTE | 2024-04-15 10:25 | PN.CDI ---
CDI
- -
CDI:
Physician Documentation Request
Admit Date: 04/13/24 20:58
Dear Doctor Russ,
Please review the following and provide your response in the progress notes.
Clinical Indicators:
04/13 Endoscopy
#...K25.9, Gastric ulcer, unspecified as acute or chronic,
without hemorrhage or perforation
Please clarify which of the following accurately represents the acuity of the Gastric Ulcer:
Acute Gastric Ulcer
Acute on Chronic Gastric Ulcer
Chronic Gastric Ulcer
Other(please specify)
Use of terms such as suspected, likely, concern for, or probable (associated with a specific diagnosis that is being evaluated, monitored, or treated as if it exists) are acceptable and can be coded in the inpatient setting, when documented at the
time of discharge.
Thank you,
Humera Linares RN BSN CCDS
CDI Specialist
please contact via tiger text
Please use your independent medical judgment in providing your response.
--- NOTE | 2024-04-15 10:27 | W.PN.HOSP.TC ---
Today's Communication/Plan
-
dc in am
Monitor today
Repeat CBC in am
Assessment / Plan
Assessment / Plan
Physical Exam
General: Well Developed, Well Nourished, No Apparent Distress, Comfortable and Conversant
HEENT: Normocephalic, Moist mucous membranes, Atraumatic, Nose Appears Normal and Ears Appear Normal
Respiratory: Clear
Cardiac: S1/S2 and Regular Rhythm
GI: Soft, Non Tender and Non Distended
Musculoskeletal: No Clubbing, No Cyanosis and No Edema
Skin: Warm and Dry; No Rash or Jaundice
Neuro: Awake, Alert and Oriented
Psych: Calm.
89 man with guaiac positive stool, epigastric pain, after taking meloxicam and ibuprofen with a history of duodenal ulcer.
# Acute epigastric abdominal pain.
s/p EGD that showed Non-bleeding gastric ulcer.
History of taking frequent Ibuprofen then started Meloxicam over the past few weeks for his chronic neck pain.
No rectal bleeding.
HGB around [address] showed duodenitis, mild diverticulosis
Was on clear liquid only, Resume diet
c/w PPI and f/w GI to repeat EGD in 8-12 weeks.
# hx of nausea
resolved.
# Leukocytosis, reactive
No fever
He had chills post procedure, will monitor
# Primary HTN
Resumed home meds.
No chest pain, no headache
Added PRN Hydralazine
#Stage 2 coccyx pressure injury, POA
Consulted wound care
Consult PT/OT
# Chronic pain - on oral opioids
#Mild hyponatremia
Total time spent to see the patient, examine the patient on the floor, review data and lab results, discuss the treatment plan with the patient, GI doctor, nursing staff around 55 minutes
Anticipated Discharge: Within 24 hours
Subjective/Interval History
-
Date of Service: April 15, 2024
he feels well, no nausea, no abd pain
no fever or chills
Objective Data
-
Labs:
Laboratory Results
04/15/24
06:47
WBC 25.4 H
Hgb 11.7 L
Hct 32.1 L
Plt Count 277
Sodium 138
Potassium 3.9
Chloride 100
Carbon Dioxide 21 L
BUN 16
Creatinine 0.8
Glucose 97
Calcium 9.0
Vital Signs:
Vital Signs
Temp Pulse Resp BP Pulse Ox
98.0 F 86 17 144/81 98
04/15/24 07:20 04/15/24 07:20 04/15/24 07:20 04/15/24 07:20 04/15/24 08:59
I&O
04/14/24 04/15/24 04/16/24
06:59 06:59 06:59
Intake Total 670 / 670
Output Total 550 / 550 400 / 400
Balance 120 / 120 -400 / -400
--- NOTE | 2024-04-15 10:39 | PN.CDI ---
CDI
- -
CDI:
Physician Documentation Request
Admit Date: 04/13/24 20:58
Dear Doctor Anupama,
Please review the following and provide your response in the progress notes.
Clinical Indicators:
04/14/24 11:30 (created 04/14/24 12:10) - Wound Note
#Wound Location and type/assessment:
#Patient admitted with:
#...multiple dermal sacral/buttocks pressure injuries.
#...Patient stated he spends a lot of time reclining on his sofa during the day.
Selected Entries
04/14/24
01:54 04/14/24
11:30
Pressure injury stage [Present on admission Coccyx] Stage 2 Stage 2
Physician documentation of the type and location of wounds is required for compliant documentation. Based on the above clinical findings and your assessment, please provide the following in your progress note:
Yes, Stage 2 coccyx pressure injury, POA
No, Stage 2 coccyx pressure injury
Other(please specify)
1. Location of the ulcer/wound, including laterality.
2. Type (etiology) of ulcer/wound:
- Diabetic ulcer
- Arterial (ischemic) ulcer
- Traumatic wound
- Venous stasis ulcer
- Pressure (decubitus) ulcer
3. If a pressure ulcer, please also include the stage* of the ulcer:
- Stage 1 - Skin intact, non-blanchable redness
- Stage 2 - Partial thickness loss of dermis, includes intact or open blister
- Stage 3 - Full thickness tissue not including bone, tendon or muscle
- Stage 4 - Full thickness tissue loss, including exposed bone, tendon or muscle
Use of terms such as suspected, likely, concern for, or probable (associated with a specific diagnosis that is being evaluated, monitored, or treated as if it exists) are acceptable and can be coded in the inpatient setting, when documented at the
time of discharge.
Thank you,
Humera Linares RN BSN CCDS
CDI Specialist
please contact via tiger text
Please use your independent medical judgment in providing your response.
*Source: National Pressure Ulcer Advisory Panel (NPUAP)
--- NOTE | 2024-04-15 13:17 | W.PN.UPDATE ---
Update Note
Progress Note Update
ADDENDUM TO DIAGNOSIS: Query from Billing regarding diagnosis of Gastric Ulcer. Diagnosis code should be 'Acute Gastric Ulcer'.
--- NOTE | 2024-04-15 14:51 | CM ---
Reviewed chart, spoke with patient about VN upon discharge for wound care. Patient denied the need and [facility] Advised patient of benefit and to update CM if he changes his mind.
PT is in to see patient.
Plan: Case management will continue to follow and assist with discharge planning. Will review PT prior to d/c to independent living.
--- NOTE | 2024-04-15 15:24 | PTCARENOTE ---
patient in chair, needs encouragement to increase ambulation and activity, tolerating diet, vss, will continue to monitor.
--- NOTE | 2024-04-15 15:53 | PTOTSP ---
pt currently demonstrates ability to complete simple ADLs, functional transfers, ambulation with supervision to no assistance. no overt deficits noted regarding ability to complete self care, will sign off at this time.
[2024-04-15] MEDS: ANESTHETIC LOZENGE 1 LOZENGE PO (20:19)
[2024-04-15] MEDS: TOPROL XL 25 MG PO (21:22)
[2024-04-16 06:38] LABS: Hematocrit 30.9 % (39.0-52.0); Hemoglobin 11.5 g/dL (13.0-18.0); Mean Corp Hgb Conc. 37.2 g/dL (33.0-37.0); Mean Corpuscular Hgb 35.5 pg (27.0-31.0); Mean Corpuscular Volume 95.4 fL (80.0-94.0); Mean Platelet Volume 11.7 fL (7.4-10.4); Platelet Count 276 10^3/uL (130-400); Red Blood Cell Count 3.24 10^6/uL (4.70-6.10); Red Cell Dist. Width 12.1 % (11.5-14.5); White Blood Cell Count 12.8 10^3/uL (4.8-10.8)
[2024-04-16 06:52] LABS: ALT (SGPT) 19 U/L (0-50); AST (SGOT) 31 U/L (17-59); Albumin 3.8 g/dl (3.5-5.0); Alkaline Phosphatase 63 U/L (38-126); Blood Urea Nitrogen 23 mg/dl (9-20); Calcium 8.8 mg/dl (8.4-10.2); Carbon Dioxide 16 mmol/L (22-30); Chloride 105 mmol/L (98-107); Estimated Creatinine Clearance 73 ml/min; Glucose 98 mg/dl (70-99); Potassium 3.6 mmol/L (3.5-5.1); Sodium 139 mmol/L (135-145); Total Bilirubin 0.7 mg/dl (0.2-1.3); Total Protein 6.5 g/dl (6.3-8.2); eGFR > 60.00
[2024-04-16 07:49] VITALS: BP 161/91
[2024-04-16] MEDS: NSS (PRESERVATIVE FREE) 10 ML IV (08:00)
[2024-04-16] MEDS: PROSCAR 5 MG PO (08:00)
[2024-04-16] MEDS: PROTONIX IV 40 MG IV (08:00)
[2024-04-16] MEDS: ANESTHETIC LOZENGE 1 LOZENGE PO (09:17)
--- NOTE | 2024-04-16 10:21 | W.PN.HOSP.TC ---
Today's Communication/Plan
-
Discharge
Assessment / Plan
Assessment / Plan
Physical Exam
General: Well Developed, Well Nourished, No Apparent Distress, Comfortable and Conversant
HEENT: Normocephalic, Moist mucous membranes, Atraumatic, Nose Appears Normal and Ears Appear Normal
Respiratory: Clear
Cardiac: S1/S2 and Regular Rhythm
GI: Soft, Non Tender and Non Distended
Musculoskeletal: No Clubbing, No Cyanosis and No Edema
Skin: Warm and Dry; No Rash or Jaundice
Neuro: Awake, Alert and Oriented
Psych: Calm, not anxious.
89 man with guaiac positive stool, epigastric pain, after taking meloxicam and ibuprofen with a history of duodenal ulcer.
# Acute epigastric abdominal pain due to acute gastric ulcer.
s/p EGD that showed Non-bleeding gastric ulcer.
History of taking frequent Ibuprofen then started Meloxicam over the past few weeks for his chronic neck pain.
No rectal bleeding.
HGB around [address] showed duodenitis, mild diverticulosis
Was on clear liquid only, Resumed diet and he tolerated it well.
c/w PPI and f/w GI to repeat EGD in 8-12 weeks.
# hx of nausea
resolved.
# Leukocytosis, reactive
No fever
He had chills post procedure, will monitor
# Primary HTN
Resumed home meds.
No chest pain, no headache
Added PRN Hydralazine
#Stage 2 coccyx pressure injury, POA
Consulted wound care
Consult PT/OT
# Chronic pain - on oral opioids
#Mild hyponatremia
Total discharge time spent to see the patient, examine the patient on the floor, review data and lab results, discuss the discharge plan with the patient, nursing staff around 65 minutes
Anticipated Discharge: Today
Subjective/Interval History
-
Date of Service: April 16, 2024
No chest pain
No sob
No fevers
Objective Data
-
Labs:
Laboratory Results
04/16/24
05:29
WBC 12.8 H
Hgb 11.5 L
Hct 30.9 L
Plt Count 276
Sodium 139
Potassium 3.6
Chloride 105
Carbon Dioxide 16 L
BUN 23 H
Creatinine 0.6 L
Glucose 98
Calcium 8.8
Total Bilirubin 0.7
AST 31
ALT 19
Alkaline Phosphatase 63
Vital Signs:
Vital Signs
Temp Pulse Resp BP Pulse Ox
98.2 F 80 17 161/91 96
04/16/24 07:49 04/16/24 07:49 04/16/24 07:49 04/16/24 07:49 04/16/24 07:49
I&O
04/15/24 04/16/24 04/17/24
06:59 06:59 06:59
Intake Total 930 / 930
Output Total 400 / 400 500 / 500
Balance -400 / -400 430 / 430
[2024-04-16 11:22] VITALS: BP 132/96; BP 140/101; BP 168/97; PULSE 101; PULSE 112; PULSE 116
--- NOTE | 2024-04-16 11:37 | CM ---
Reviewed chart, patient is medically stable for discharge. Met with patient to review IMM. He signed and is agreeable to discharge. He has no concerns. Patient has transportation back to his apartment at 13:30. RN updated. [employer] updated.
Plan: Case management will continue to follow and assist with discharge planning. Home.
--- NOTE | 2024-04-16 12:05 | W.DCSUMMARY ---
Discharge Summary
Discharge Data
Date of Admission: 04/13/24
Date of Discharge: 04/16/24
-
Pending Results: No
Hospital Course
89 years old male who presented with abdominal pain. His pain was periumbilical region/epigastric. He reported lack of appetite and vomiting. He was taking meloxicam for chronic neck pain in addition to as needed, oxycodone and ibuprofen. Stool
exam was positive for Hemoccult. Patient was evaluated by gastroenterology service. Hemoglobin was 12 upon admission and went slightly down to 11.5 upon discharge. Patient underwent upper endoscopy that showed acute gastric ulcer, nonbleeding.
Patient was started on Protonix pump inhibitor. His condition improved with resolution of pain. He was able to tolerate oral diet. Patient was up advised to avoid nonsteroidal anti-inflammatory drugs and to continue Protonix twice daily for few
weeks and then follow-up with gastrointestinal doctor for repeat upper endoscopy. Patient remained hemodynamically stable and was discharged home in a stable condition.
Discharge Plan
-
Patient Disposition: Home (Routine Discharge)
Discharge Diagnosis/Procedures: Acute gastric ulcer
Avoid NSAIDs as Meloxicam for now
Continue Protonic ( Acid reducing medicine) for two times a day for one month then daily ( one tablet) in morning time 20-30 minutes before breakfast.
Follow with GI doctor to repeat endoscopy in one - two months
Diet: As tolerated
Activity Restrictions/Additional Instructions:
Wound Care Instructions
Sacral/buttocks ulcers-clean with saline or soap and water, miconazole powder prn yeasty red skin, no sting barrier wipe to periwound skin, silicone border foam (cut notch at distal adhesive border to avoid anal area), change q 2 days and prn
loosened dressing. If foam ineffective, apply zinc barrier ointment (i.e. Calazime) and ABD pad secured with minimal silicone tape daily instead.
Avoid direct pressure on sacral/buttocks. Use pillow/s to reposition off sacral/buttocks.
Pressure redistributing chair cushion (i.e. air chair cushion).
Elevate heels off bed with pillow/s.
Follow up at wound care center call for an appointment.
Referrals:
Ronak Martinez PA-C [Family Provider] - in one to two weeks
Naveen Solano DO [Active] - in one month
Prescriptions:
New
pantoprazole [Protonix] 40 mg tablet,delayed release (DR/EC)
40 mg PO BID Qty: 60 0RF
Continued
garlic 1,000 MG capsule
1,000 mg PO DAILY
fluticasone propionate 1 SPRAY spray,suspension
2 spray intranasal DAILY
finasteride 5 MG tablet
5 mg PO DAILY
loratadine 10 MG tablet
10 mg PO DAILY
glucosamine sulfate 2KCl 1,000 MG tablet
1,000 mg PO BID
multivitamin with folic acid [Tab-A-Mayra] 1 TABLET tablet
1 tab PO DAILY
ketoconazole 2 % Shampoo
1 applic TOPICAL WEEKLY Qty: 0
pyridoxine (vitamin B6) [Vitamin B-6] 50 mg Tablet
50 mg PO DAILY Qty: 0
cholecalciferol (vitamin D3) [Vitamin D3] 50 mcg (2,000 unit) Tablet
100 mcg PO DAILY Qty: 0
guaifenesin 100 mg/5 mL Liquid
200 mg PO BID
simvastatin 40 mg tablet
20 mg PO QPM
tamsulosin 0.4 mg Capsule
0.4 mg PO DAILY
metoprolol succinate 25 mg tablet extended release 24 hr
25 mg PO HS
oxycodone-acetaminophen 7.5-325 mg tablet
0.5 tab PO 6XD
Patient Comments:
04/13/2024: last filled 03/23/24, 90 tabs for 30 days from [facility]
Changed
melatonin 3 mg Tablet
6 mg PO HSPRN PRN (Reason: insomnia) Qty: 0 0RF
Discontinued
ibuprofen 200 mg Capsule
200 mg PO Q6HPRN PRN (Reason: mild pain/fever)
meloxicam 7.5 mg tablet
7.5 mg PO BID
Discharge Orders:
Discharge Patient (As Directed); Ordered 04/16/24
Ordered By: Constance Altman
Discharge Date and Time
Print Language: SAMI
[2024-04-16 12:35] VITALS: BP 182/99; PULSE 107; O2SAT 99
[2024-04-16 13:31] VITALS: BP 153/86
== END 2024-04-16 13:50 | disposition home health service (06) | DRG 378 ==
LOC: 3 WEST ACU 20:58
PROVIDERS: ADMITTING PHYSICIAN Internal Medicine; ATTENDING PHYSICIAN Internal Medicine; EMERGENCY PHYSICIAN Emergency Medicine; FAMILY PHYSICIAN Physician Assistant Medical; OTHER PHYSICIAN Student in an Organized Health Care Education/Training Program
PROC: 0DB68ZX Excision of Stomach, Via Natural or Artificial Opening Endoscopic, Diagnostic (ICD-10-PCS; 2024-04-14)
PROC: 0DB78ZX Excision of Stomach, Pylorus, Via Natural or Artificial Opening Endoscopic, Diagnostic (ICD-10-PCS; 2024-04-14)
DX: K25.4 Chronic or unspecified gastric ulcer with hemorrhage (principal); E87.1 Hypo-osmolality and hyponatremia; K57.10 Diverticulosis of small intestine without perforation or abscess without bleeding; I10 Essential (primary) hypertension; L89.152 Pressure ulcer of sacral region, stage 2; K29.80 Duodenitis without bleeding; T39.395A Adverse effect of other nonsteroidal anti-inflammatory drugs [NSAID], initial encounter
CPT/HCPCS: 88300; 88312; 74177; 80048; 80053; 83690; 84484; 85014; 85018; 85025; 85027; 87070; 88313; 88341; 88342; 93005; 96365; 96375; 97116; 97162; 97165; 99285; Q9967

== ENCOUNTER → 2024-06-21 06:27 | Day surgery (SDC) | payer OTHER, SELFPAY | LOC: GI 06:27 | PROVIDERS: ATTENDING PHYSICIAN Student in an Organized Health Care Education/Training Program | DX: K31.89 Other diseases of stomach and duodenum (principal); K25.3 Acute gastric ulcer without hemorrhage or perforation | CPT/HCPCS: 43239; 88305; 88342 ==

== ENCOUNTER 2024-09-21 06:22 | Day surgery (SDC) | payer OTHER, SELFPAY | END 2024-09-21 11:39 | disposition home or self-care (01) | LOC: GI 06:22 | PROVIDERS: ATTENDING PHYSICIAN Student in an Organized Health Care Education/Training Program; FAMILY PHYSICIAN Physician Assistant Medical | DX: K29.70 Gastritis, unspecified, without bleeding (principal); K31.89 Other diseases of stomach and duodenum; K57.10 Diverticulosis of small intestine without perforation or abscess without bleeding; Z87.11 Personal history of peptic ulcer disease | CPT/HCPCS: 43239; 88305; 88342 ==